=== PATIENT | male | born 1980 | race Caucasian/White ===

== ENCOUNTER 2024-06-20 11:26 | Emergency (ER) | payer OTHER, SELFPAY ==
--- OUTSIDE RECORDS SUMMARY | 2024-06-20 11:30 | XMS REPORT | Continuity of Care Document ---
Author Name Unknown Address [address] [facility] [address] [place] [address] [facility] [address] [facility] [place] [address] Care Team Providers Care Instrument/Control Technician Name Role Phone Louis Beckwith Primary Care Physician [phone] Allergies, Adverse Reactions, Alerts Allergy Name Allergy Type Status Severity Reaction(s) Onset Date Inactive Date Treating Clinician Comments Source penicill in (Not Checked) Propensi ty to adverse reaction to drug Active 09-04 00:00: 00 Burt Mayfield Medications Ordered Medication Name Filled Medication Name Start Date Stop Date Current Medication? Ordering Clinician Indication Dosage Frequency Signature (SIG) Comments Components Source losartan 50 mg tablet 4-16 00:00: 00 Yes 1mg Burt Mayfield losartan 50 mg tablet 4-04 00:00: 00 Yes 1mg Burt Bellamy Chaparro losartan 50 mg tablet 3-03 00:00: 00 Yes 1mg Burt Bellamy Chaparro losartan 50 mg tablet 2023-02 1- 00:00: 00 Yes 1mg Burt Mayfield Protonix 40 mg tablet,leslie yed release 2023-02 1-11 00:00: 00 Yes 1mg Burt Bellamy Chaparro metoprolol tartrate 25 mg tablet 2023-02 1-11 00:00: 00 Yes 1mg Burt F Chaparro losartan 50 mg tablet 2023-02 0-28 00:00: 00 Yes 1mg Burt Bellamy Chaparro Protonix 40 mg tablet,leslie yed release 2023-02 0-28 00:00: 00 Yes 1mg Burt Mayfield metoprolol tartrate 25 mg tablet 2023-02 0-28 00:00: 00 Yes 1mg Burt Bellamy Chaparro losartan 50 mg tablet 2023-02 0-17 00:00: 00 Yes 1mg Burt F Chaparro losartan 50 mg tablet 09-04 00:00: 00 Yes 1mg Burt Mayfield Protonix 40 mg tablet,leslie yed release 09-04 00:00: 00 Yes 1mg Burt Mayfield metoprolol tartrate 25 mg tablet 09-04 00:00: 00 Yes 1mg Burt Mayfield Vital Signs Vital Name Observation Time Observation Value Comments S moi BP Systolic 2024-05-30 17:36:00 147 mm[Hg] Step hen F Chaparro BP Diastolic 2024-05-30 17:36:00 100 mm[Hg] Barrett phen F Chaparro Weight Measured 2024-05-30 17:36:00 203.40 pounds Burt Josesito Mayfield Height Measured 2024-05-30 17:36:00 71.00 inches Burt Mayfield Body Temperature 2024-05-30 17:36:00 98.20 degrees Burt F Chaparro Heart Rate 2024-05-30 17:36:00 73.00 /min Sunni en F Chaparro Respiratory Rate 2024-05-30 17:36:00 18.00 /min Burt Josesito Mayfield BP Systolic 2023-12-26 09:24:00 125 mm[Hg] Step hen F Chaparro BP Diastolic 2023-12-26 09:24:00 88 mm[Hg] Barrett phen F Chaparro Weight Measured 2023-12-26 09:24:00 208.20 pounds Burt Mayfield Height Measured 2023-12-26 09:24:00 71.00 inches Burt Mayfield Body Temperature 2023-12-26 09:24:00 98.20 degrees Burt F Chaparro Heart Rate 2023-12-26 09:24:00 63.00 /min Sunni en F Chaparro Respiratory Rate 2023-12-26 09:24:00 18.00 /min Burt F Chaparro Heart Rate 2023-09-05 08:19:00 98.00 /min Sunni en F Chaparro Respiratory Rate 2023-09-05 08:19:00 19.00 /min Burt F Chaparro BP Systolic 2023-09-05 08:19:00 121 mm[Hg] Step hen F Chaparro BP Diastolic 2023-09-05 08:19:00 83 mm[Hg] Barrett phen F Chaparro Weight Measured 2023-09-05 08:19:00 189.60 pounds Burt Mayfield Height Measured 2023-09-05 08:19:00 71.00 inches Burt Mayfield Body Temperature 2023-09-05 08:19:00 97.50 degrees Burt Mayfield Encounters Start Date/Time End Date/Time Encounter Type Admission Type Attending [facility] Care Department Encounter ID Source 2024-06-20 11:15:30 2024-06-20 11:15:30 Outpatient SFA [id number] [id number] Burt Mayfield 2024-05-30 17:31:54 2024-05-30 17:31:54 Outpatient SFA SFA [id number] Burt Mayfield 2024-05-30 00:00:00 2024-05-30 00:00:00 Outpatient Visit SFA [id number] Burt Mayfield 2024-04-24 15:07:41 2024-04-24 15:07:41 Outpatient SFA SFA [id number] Burt Mayfield 2024-04-24 00:00:00 2024-04-24 00:00:00 Outpatient Visit SFA [id number] Burt Mayfield 2023-12-28 10:33:36 2023-12-28 10:33:36 Outpatient SFA SFA [id number] Burt Mayfield 2023-12-26 11:26:57 2023-12-26 11:26:57 Outpatient SFA SFA [id number] Burt Mayfield 2023-12-26 00:00:00 2023-12-26 00:00:00 Outpatient Visit SFA [id number] Burt Mayfield 2023-09-05 08:18:08 2023-09-05 08:18:08 Outpatient SFA SFA [id number] Burt Mayfield 2023-09-05 00:00:00 2023-09-05 00:00:00 Outpatient Visit SFA [id number] Burt Mayfield Results Test Description Test Time Test Comments Results Result Co mments Source Burt MayfieldLIPID [id number] 00:00:00* Test Item Value Reference Range Interpretation Comme nts CHOLESTEROL (test code = 2210) 224 MG/DL TRIGLYCERIDES (test code = 2232) 270 MG/DL HDL CHOLESTEROL (test code = 2220) 52 MG/DL CALC LDL CHOL (test code = 2237) 130 MG/DL RISK RATIO LDL/HDL (test cod e = 2238) 2.50 RATIO Burt MayfieldCOMPREHENSIVE METABOLIC [id number] 00:00:00* Test Item Value Reference Range Interpretation Comme nts GLUCOSE (test code = 2217) 104 MG/DL BUN (test code = 2208) 23 MG/DL CREATININE (test code = 2214) 0.92 MG/DL eGFR (2020 CKD-EPI) (test code = 39809) 106 ML/MIN/1.73 CALC BUN/CREAT (test code = 2235) 25 RATIO SODIUM (test code = 2231) 136 MEQ/L POTASSIUM (test code = 2228) 4.8 MEQ/L CHLORIDE (test code = 2215) 102 MEQ/L CARBON DIOXIDE (test code = 2206) 25 MEQ/L CALCIUM (test code = 2209) 9.7 MG/DL PROTEIN, TOTAL (test code = 2229) 7.1 G/DL ALBUMIN (test code = 2201) 4.6 G/DL CALC GLOBULIN (test code = 2240) 2.5 G/DL CALC A/G RATIO (test code = 2234) 1.8 RATIO BILIRUBIN, TOTAL (test code = 2207) 0.6 MG/DL ALKALINE PHOSPHATASE (test code = 2204) 86 U/L AST (test code = 2218) 24 U/L ALT (test code = 2219) 37 U/L Burt MayfieldHEMOGLOBIN [id number] 00:00:00* Test Item Value Reference Range Interpretation Comme nts HEMOGLOBIN A1c (test code = 64333) 5.4 % Burt MayfieldLIPID [id number] 00:00:00* Test Item Value Reference Range Interpretation Comme nts CHOLESTEROL (test code = 2210) 224 MG/DL TRIGLYCERIDES (test code = 2232) 270 MG/DL HDL CHOLESTEROL (test code = 2220) 52 MG/DL CALC LDL CHOL (test code = 2237) 130 MG/DL RISK RATIO LDL/HDL (test cod e = 2238) 2.50 RATIO Burt MayfieldCOMPREHENSIVE METABOLIC [id number] 00:00:00* Test Item Value Reference Range Interpretation Comme nts GLUCOSE (test code = 2217) 104 MG/DL BUN (test code = 2208) 23 MG/DL CREATININE (test code = 2214) 0.92 MG/DL eGFR (2020 CKD-EPI) (test code = 15665) 106 ML/MIN/1.73 CALC BUN/CREAT (test code = 2235) 25 RATIO SODIUM (test code = 2231) 136 MEQ/L POTASSIUM (test code = 2228) 4.8 MEQ/L CHLORIDE (test code = 2215) 102 MEQ/L CARBON DIOXIDE (test code = 2206) 25 MEQ/L CALCIUM (test code = 2209) 9.7 MG/DL PROTEIN, TOTAL (test code = 2229) 7.1 G/DL ALBUMIN (test code = 2201) 4.6 G/DL CALC GLOBULIN (test code = 2240) 2.5 G/DL CALC A/G RATIO (test code = 2234) 1.8 RATIO BILIRUBIN, TOTAL (test code = 2207) 0.6 MG/DL ALKALINE PHOSPHATASE (test code = 2204) 86 U/L AST (test code = 2218) 24 U/L ALT (test code = 2219) 37 U/L Burt Josesito Chaparro Notes Date/Time Note Provider Source [facility]2025-03-11 00:00:00 [facility]2024-11-11 00:00:00 [facility]2024-07-22 00:00:00 [facility]
[2024-06-20] MEDS ORDERED: NA CHLORIDE 0.9% 1,000 ML ONE (11:45)
[2024-06-20 12:20] LABS: Absolute Eosinophils 0.2 K/uL (0-0.5); Absolute Lymphocytes (CBC) 1.6 K/uL (0.7-4.9); Absolute Monocytes 0.6 K/uL (0.1-1.3); Absolute Neutrophil 4.3 K/uL (1.8-8.0); Basophils % 0.5 % (0-1.3); Eosinophils % 2.9 % (0-4.4); Hematocrit 43.7 % (39.6-49.0); Hemoglobin 15.6 g/dL (13.6-17.9); Lymphocytes % 24.1 % (15.3-44.8); MCH 32.1 pg (27.0-35.0); MCHC 35.7 g/dL (32.0-36.0); MCV 89.8 fL (80-100); MPV 7.3 fL (7.6-11.3); Monocytes % 9.3 % (3.3-12.3); Neutrophils % 63.2 % (41.7-73.7); Platelets 274 thou/uL (152-406); RBC Red Blood Cell Count 4.87 M/uL (4.33-5.43); Red Cell Distribution Width 12.9 % (12.1-15.2)
[2024-06-20 12:27] LABS: PT Prothrombin Time 13.4 SECONDS (10-13.0); PTT, Activated Partial Thromb 28.4 SECONDS (27.2-37.4); Protime INR 1.18
--- NOTE | 2024-06-20 12:39 | ER ---
Nurse's Notes [facility] Name: Dillan Tamayo Age: 43 yrs Sex: Male : 1980 Arrival Date: 06/20/2024 Time: 11:26 Bed 18 Private MD: Diagnosis: Major depressive disorder, recurrent, moderate;Bipolar disorder, unspecified;Suicidal ideations Presentation: 06/20 11:39 Chief complaint: Patient states: he is on parole, failed his UA and UDS in attempt to kc6 get a new job and now "they want to lock me up again." pt states he has a noose tied to one of the trees at the local [employer] so he can hang himself. pt reports auditory halllucinations. 11:39 Coronavirus screen: At this time, the client does not indicate any symptoms associated kc6 with coronavirus-19. Ebola Screen: No symptoms or risks identified at this time. Initial Sepsis Screen: Does the patient meet any 2 criteria? No. Patient's initial sepsis screen is negative. Does the patient have a suspected source of infection? No. Patient's initial sepsis screen is negative. Risk Assessment: Do you want to hurt yourself or someone else? Patient reports desire/thoughts of hurting themselves or someone else. Provider notified. Onset of symptoms was June 20, 2024. 11:39 Method Of Arrival: Ambulatory [facility] 11:39 Acuity: JHONATHAN 2 kc6 Historical: - Allergies: 11:39 PENICILLINS; kc6 - Home Meds: 11:39 metoprolol tartrate 25 mg Oral tablet 1 tab 2 times per day [Active]; omeprazole 40 mg kc6 Oral capsule,delayed release (e.c.) 1 cap daily for gastroesophageal reflux disease [Active]; Lisinopril 50 mg Oral 1 tab daily for hypertension [Active]; - PMHx: 11:39 Hypertensive disorder; Gastroesophageal reflux disease; Anxiety; Depressive disorder; kc6 Bipolar disorder; PTSD; - PSHx: 11:39 None; kc6 - Immunization history:: Adult Immunizations up to date. - Infectious Disease History:: Denies. - Social history:: Smoking status: Reported history of juuling and/or vaping. Patient uses alcohol, patient/guardian reports recent binge of alcohol consumption. street drugs, cocaine, Methamphetamine (Meth). Screenin:39 [facility] ED Fall Risk Assessment (Adult) History of falling in the last 3 months, kc6 including since admission No falls in past 3 months (0 pts) Confusion or Disorientation No (0 pts) Intoxicated or Sedated Yes (3 pts) Impaired Gait No (0 pts) Mobility Assist Device Used No (0 pt) Altered Elimination No (0 pt) Score/Fall Risk Level 3 or more points = High Risk Oriented to surroundings. Abuse screen: Denies threats or abuse. Denies injuries from another. Nutritional screening: No deficits noted. Tuberculosis screening: No symptoms or risk factors identified. Assessment: 11:39 General: Appears in no apparent distress. comfortable, well groomed, well developed, kc6 Behavior is anxious, restless. Pain: Denies pain. Neuro: Level of Consciousness is awake, alert, obeys commands, Oriented to person, place, time, situation, Appropriate for age. Cardiovascular: Capillary refill < 3 seconds. Respiratory: Airway is patent Trachea midline Respiratory effort is even, unlabored, Respiratory pattern is regular, symmetrical. GI: No signs and/or symptoms were reported involving the gastrointestinal system. : No signs and/or symptoms were reported regarding the genitourinary system. EENT: No signs and/or symptoms were reported regarding the EENT system. Derm: No signs and/or symptoms reported regarding the dermatologic system. Skin is intact, is healthy with good turgor, Skin is pink, warm \\T\\ dry. Musculoskeletal: No signs and/or symptoms reported regarding the musculoskeletal system. Circulation, motion, and sensation intact. Range of motion: intact in all extremities. 12:39 Reassessment: Patient appears in no apparent distress at this time. No changes from kc6 previously documented assessment. Patient and/or family updated on plan of care and expected duration. Pain level reassessed. Patient is alert, oriented x 3, equal unlabored respirations, skin warm/dry/pink. 13:41 Reassessment: Patient appears in no apparent distress at this time. No changes from kc6 previously documented assessment. Patient and/or family updated on plan of care and expected duration. Pain level reassessed. Patient is alert, oriented x 3, equal unlabored respirations, skin warm/dry/pink. 14:41 Reassessment: Patient appears in no apparent distress at this time. No changes from kc6 previously documented assessment. Patient and/or family updated on plan of care and expected duration. Pain level reassessed. Patient is alert, oriented x 3, equal unlabored respirations, skin warm/dry/pink. 14:50 Reassessment: [facility] at bedside evaluating patient. kc6 15:51 Reassessment: nurse to nurse report given to MARIE Page at [facility]. kc6 15:51 Reassessment: Patient appears in no apparent distress at this time. No changes from kc6 previously documented assessment. Patient and/or family updated on plan of care and expected duration. Pain level reassessed. Patient is alert, oriented x 3, equal unlabored respirations, skin warm/dry/pink. 16:51 Reassessment: Patient appears in no apparent distress at this time. No changes from kc6 previously documented assessment. Patient and/or family updated on plan of care and expected duration. Pain level reassessed. Patient is alert, oriented x 3, equal unlabored respirations, skin warm/dry/pink. 17:51 Reassessment: Patient appears in no apparent distress at this time. No changes from kc6 previously documented assessment. Patient and/or family updated on plan of care and expected duration. Pain level reassessed. Patient is alert, oriented x 3, equal unlabored respirations, skin warm/dry/pink. 18:16 Reassessment: Patient appears in no apparent distress at this time. No changes from kc6 previously documented assessment. Patient and/or family updated on plan of care and expected duration. Pain level reassessed. Patient is alert, oriented x 3, equal unlabored respirations, skin warm/dry/pink. Psych: 11:39 [place] Suicide Severity Screening: In the past month, have you wished you were kc6 or wished you could go to sleep and not wake up? Patient responds "yes." Based off the client's responses additional C-SSRS screening is required. "In the past month, have you actually had any thoughts of killing yourself?" Patient responds "yes." Based off the client's response additional [place] suicide severity screening questions to be further documented on paper forms. "In your lifetime, have you ever done anything, started to do anything, or prepared to do anything to end your life?" Patient responds "yes." Patient reports suicidal intent within 3 past months. Subjective: Patient's mood is irritable, Delusions are denied, Hallucinations are auditory, suspected, Having thoughts of suicide. Plan for suicide is "hang myself with a noose". 11:39 Objective: Patient is using poor eye contact, restless, Speech is rapid, Affect is kc6 appropriate. Interventions: Removed personal items and placed in bag. Patient placed in hospital gown. Searched person for dangerous items. Urine collected and sent for urine drug test. Belonging list filled out. Safety Checks: Personal items have been removed. Door is closed to patient's room. No visitors are present at this time. Patient uses Patient uses cocaine, Patient uses methamphetamines Patient uses tobacco. Commitment: Patient will be a voluntary commitment. Vital Signs: 11:39 BP 117 / 84; Pulse 80; Resp 19 S; Temp 97.9(TE); Pulse Ox 100% on R/A; Weight 92.53 kg kc6 (R); Height 6 ft. 1 in. (R); Pain 0/10; 18:15 BP 122 / 82; Pulse 85; Resp 17 S; Temp 98.2(O); Pulse Ox 100% on R/A; Pain 0/10; kc6 11:39 Body Mass Index 26.91 (92.53 kg, 185.42 cm) [facility] 11:39 Pain Scale: Adult kc6 18:15 Pain Scale: Adult kc6 ED Course: 11:29 Patient arrived in ED. al6 11:31 Johnny Perea MD is Attending Physician. [facility] 11:39 Safety Checks: Personal items have been removed. The door is not opened, nor is patient kc6 placed in a hallway bed/chair. There are no family/friend visitors at this time Sitter present at this time. 11:39 Arm band placed on. kc6 11:39 Patient has correct armband on for positive identification. Bed in low position. Side kc6 rails up X2. Valuables inventory done. Locked in safe. See valuables checklist. Sitter at bedside. Door closed. Noise minimized. Visitors limited. Lights dimmed. Moved to private room. Warm blanket given. Pillow given. Verbal reassurance given. Patient is placed in psych hold. 11:39 No provider procedures requiring assistance completed. Patient maintains SpO2 kc6 saturation greater than 95% on room air. 11:42 Qing Smalls RN is Primary Nurse. kc6 12:03 Triage completed. kc6 13:56 contacted [facility] to have a screener evaluate pt. bd 14:07 faxed chart to hamzah montano. bd 18:15 IV discontinued, intact, bleeding controlled, No redness/swelling at site. Pressure kc6 dressing applied. Administered Medications: 12:19 Drug: NS 0.9% IV 1000 ml IV at 1000 ml once; to be given as a bolus over 60 minutes kc6 Route: IV; Rate: 1000 ml; Site: right forearm; 13:42 Follow up: Response: No adverse reaction; IV Status: Completed infusion; IV Intake: kc6 1000ml Medication: 18:15 VIS not applicable for this client. kc6 Intake: 13:42 IV: 1000ml; Total: 1000ml. kc6 Outcome: 12:39 ER care complete, transfer ordered by . ivette 18:15 Transferred by ground EMS [facility]. Transfer form completed. Note: report given kc6 to MARIE Page 18:15 Condition: good 18:15 Instructed on the need for transfer, kc6 18:18 Patient left the ED. kc6 Signatures: Lashawn Rutledge Corey, MD MD cha Campbell, Kaitlyn RN RN kc6 Maira Du Corrections: (The following items were deleted from the chart) 12:06 11:39 Home Meds: Lisinopril Oral; kc6 kc6 12:35 11:39 92.53 kg Reported; Height 6 ft. 1 in. Reported; BMI: 26.9; Pain 0/10, Adult; kc6 kc6
--- NOTE | 2024-06-20 12:39 | EDPHYS ---
Physician Documentation [facility] Name: Dillan Tamayo Age: 43 yrs Sex: Male : 1980 Arrival Date: 06/20/2024 Time: 11:26 Bed 18 Private MD: MARTIN Physician Johnny Perea HPI: 06/20 12:33 This 43 yrs old Male presents to ER via Ambulatory with complaints of Psych ivette Problem, Suicidal Ideation. 12:33 The patient presents to the emergency department with anxiety, depression, suicide ivette ideation, and the patient has a plan, to hang oneself. Onset: The symptoms/episode began/occurred today. Past psychiatric history: Prior diagnosis: addiction history, depression. Associated signs and symptoms: Pertinent positives; suicide ideation. Severity of symptoms: At their worst the symptoms were moderate in the emergency department the symptoms have improved mildly. The patient has experienced similar episodes in the past, a few times. Historical: - Allergies: 11:39 PENICILLINS; kc6 - Home Meds: 11:39 metoprolol tartrate 25 mg Oral tablet 1 tab 2 times per day [Active]; omeprazole 40 mg kc6 Oral capsule,delayed release (e.c.) 1 cap daily for gastroesophageal reflux disease [Active]; Lisinopril 50 mg Oral 1 tab daily for hypertension [Active]; - PMHx: 11:39 Hypertensive disorder; Gastroesophageal reflux disease; Anxiety; Depressive disorder; kc6 Bipolar disorder; PTSD; - PSHx: 11:39 None; kc6 - Immunization history:: Adult Immunizations up to date. - Infectious Disease History:: Denies. - Social history:: Smoking status: Reported history of juuling and/or vaping. Patient uses alcohol, patient/guardian reports recent binge of alcohol consumption. street drugs, cocaine, Methamphetamine (Meth). ROS: 12:34 Constitutional: Negative for fever, chills, and weight loss, Eyes: Negative for injury, ivette pain, redness, and discharge, ENT: Negative for injury, pain, and discharge, Neck: Negative for injury, pain, and swelling, Cardiovascular: Negative for chest pain, palpitations, and edema, Respiratory: Negative for shortness of breath, cough, wheezing, and pleuritic chest pain, Abdomen/GI: Negative for abdominal pain, nausea, vomiting, diarrhea, and constipation, Back: Negative for injury and pain, : Negative for injury, bleeding, discharge, and swelling, MS/Extremity: Negative for injury and deformity, Skin: Negative for injury, rash, and discoloration, Neuro: Negative for headache, weakness, numbness, tingling, and seizure, Allergy/Immunology: Negative for hives, rash, and allergies, Endocrine: Negative for neck swelling, polydipsia, polyuria, polyphagia, and marked weight changes, Hematologic/Lymphatic: Negative for swollen nodes, abnormal bleeding, and unusual bruising, 12:34 Psych: Positive for anxiety, depression, suicidal ideation, Exam: 12:34 Constitutional: This is a well developed, well nourished patient who is awake, alert, ivette and in no acute distress. Head/Face: Normocephalic, atraumatic. Eyes: Pupils equal round and reactive to light, extra-ocular motions intact. Lids and lashes normal. Conjunctiva and sclera are non-icteric and not injected. Cornea within normal limits. Periorbital areas with no swelling, redness, or edema. ENT: Nares patent. No nasal discharge, no septal abnormalities noted. Tympanic membranes are normal and external auditory canals are clear. Oropharynx with no redness, swelling, or masses, exudates, or evidence of obstruction, uvula midline. Mucous membranes moist. Neck: Trachea midline, no thyromegaly or masses palpated, and no cervical lymphadenopathy. Supple, full range of motion without nuchal rigidity, or vertebral point tenderness. No Meningismus. Chest/axilla: Normal chest wall appearance and motion. Nontender with no deformity. No lesions are appreciated. Cardiovascular: Regular rate and rhythm with a normal S1 and S2. No gallops, murmurs, or rubs. Normal PMI, no JVD. No pulse deficits. Respiratory: Lungs have equal breath sounds bilaterally, clear to auscultation and percussion. No rales, rhonchi or wheezes noted. No increased work of breathing, no retractions or nasal flaring. Abdomen/GI: Soft, non-tender, with normal bowel sounds. No distension or tympany. No guarding or rebound. No evidence of tenderness throughout. Back: No spinal tenderness. No costovertebral tenderness. Full range of motion. Male : Normal genitalia with no discharge or lesions. Skin: Warm, dry with normal turgor. Normal color with no rashes, no lesions, and no evidence of cellulitis. MS/ Extremity: Pulses equal, no cyanosis. Neurovascular intact. Full, normal range of motion., bilateral aka Neuro: Awake and alert, GCS 15, oriented to person, place, time, and situation. Cranial nerves II-XII grossly intact. Motor strength 5/5 in all extremities. Sensory grossly intact. Cerebellar exam normal. Normal gait. Psych: Awake, alert, with orientation to person, place and time. Behavior, mood, and affect are within normal limits. 12:34 ECG was reviewed by the Attending Physician. Vital Signs: 11:39 BP 117 / 84; Pulse 80; Resp 19 S; Temp 97.9(TE); Pulse Ox 100% on R/A; Weight 92.53 kg kc6 (R); Height 6 ft. 1 in. (R); Pain 0/10; 18:15 BP 122 / 82; Pulse 85; Resp 17 S; Temp 98.2(O); Pulse Ox 100% on R/A; Pain 0/10; kc6 11:39 Body Mass Index 26.91 (92.53 kg, 185.42 cm) kc6 11:39 Pain Scale: Adult kc6 18:15 Pain Scale: Adult kc6 MDM: 11:31 Medical Screening Exam initiated ivette 12:36 Differential diagnosis: drug withdrawal. acute psychotic break, depression, psychosis ivette secondary to non-compliance. Differential Diagnosis altered mental status, sepsis. Data reviewed: vital signs, nurses notes, lab test result(s), EKG. Consideration of Admission/Observation Escalation of care including admission/observation considered. I considered the following discharge prescriptions or medication management in the emergency department Medications were administered in the Emergency Department. See MAR. Independent interpretation of the following test(s) in the Emergency Department EKG: See my EKG interpretation above. Test considered but Not performed: CT: no ct brain. Historians other than the Patient: pt well informed. Care significantly affected by the following chronic conditions: Hypertension, bipolar, gerd, anxiety, depression. 06/20 11:31 Order name: Acetaminophen [facility] 06/20 11:31 Order name: Basic Metabolic Panel [facility] 06/20 11:31 Order name: CBC with Diff 06/20 11:31 Order name: ETOH Level 06/20 11:31 Order name: Hepatic Function [facility] 06/20 11:31 Order name: PT-INR [facility] 06/20 11:31 Order name: Ptt, Activated [facility] 06/20 11:31 Order name: Salicylate [facility] 06/20 11:31 Order name: Urine Drug Screen [facility] 06/20 14:49 Order name: CBC Smear Scan [facility] 06/20 11:31 Order name: EKG; Complete Time: 11:32 [facility] 06/20 11:31 Order name: EKG - Nurse/Tech; Complete Time: 12:19 [facility] 06/20 11:31 Order name: IV Saline Lock; Complete Time: 12:11 [facility] 06/20 11:31 Order name: Labs collected and sent; Complete Time: 12:11 [facility] 06/20 11:31 Order name: Suicide Screening ([place]); Complete Time: 12:09 [facility] EC:34 Rate is 79 beats/min. Rhythm is regular. QRS [place] is Normal. [place] interval is normal. QRS ivette interval is normal. QT interval is normal. No Q waves. T waves are Normal. No ST changes noted. Clinical impression: NSR w/ Non-specific ST/T Changes and No evidence of ischemia. Interpreted by me. Reviewed by me. Administered Medications: 12:19 Drug: NS 0.9% IV 1000 ml IV at 1000 ml once; to be given as a bolus over 60 minutes kc6 Route: IV; Rate: 1000 ml; Site: right forearm; 13:42 Follow up: Response: No adverse reaction; IV Status: Completed infusion; IV Intake: kc6 1000ml Disposition Summary: 06/20/24 12:39 Transfer Ordered Notes: Transfer Location: Psych Facility ivette Reason: Higher level of care ivette Condition: Stable ivette Problem: new ivette Symptoms: have improved ivette Accepting Physician: to psych(06/20/24 18:18) kc6 Diagnosis - Major depressive disorder, recurrent, moderate ivette - Bipolar disorder, unspecified ivette - Suicidal ideations ivette Forms: - Medication Reconciliation Form ivette - SBAR form ivette Signatures: Dispatcher [employer] Johnny Sigala MD MD cha Campbell, Kaitlyn RN RN kc6 Corrections: (The following items were deleted from the chart) 12:06 11:39 Home Meds: Lisinopril Oral; kc6 kc6 18:18 12:39 to psych ivette kc6
[2024-06-20 12:55] LABS: ALT/SGPT 31 U/L (16-61); AST/SGOT 18 U/L (15-37); Albumin 4.1 g/dL (3.4-5.0); Albumin/Globulin Ratio 1.2 (1.1-1.8); Alkaline Phosphatase 77 U/L (45-117); Anion Gap 9.6 mEq/L (5.0-15.0); BUN Blood Urea Nitrogen 11 mg/dL (7-18); Bicarbonate 24 mEq/L (21-32); Bilirubin Direct 0.4 mg/dL (0-0.2); Bilirubin Indirect, Calculated 1.4 mg/dL (0.2-0.8); Bilirubin Total 1.8 mg/dL (0.2-1.0); Globulin 3.3 g/dL (2.3-3.5); Glomerular Filtration Rate 92 ml/min (=/>90); Glucose Level 84 mg/dL (74-106); Potassium 3.6 mEq/L (3.5-5.1); Protein, Total 7.4 g/dL (6.4-8.2); Sodium Level 135 mEq/L (136-145)
[2024-06-20 13:03] LABS: Barbiturates NEGATIVE (NEGATIVE); Benzodiazepines NEGATIVE (NEGATIVE); Cocaine POSITIVE (NEGATIVE); METHAMPHETAM POSITIVE (NEGATIVE); Methadone NEGATIVE (NEGATIVE); Opiates NEGATIVE (NEGATIVE); Phencyclidine NEGATIVE (NEGATIVE); THC Cannibis NEGATIVE (NEGATIVE)
[2024-06-20 14:48] LABS: Blood Morphology Comment NOT SEEN (NOT SEEN); Platelet Estimate ADEQ; White Blood Cell Scan OK (OK)
[2024-06-20 19:59] VITALS: O2SAT 100
[2024-06-20 20:01] VITALS: BP 122/82; TEMP 98.2
--- NOTE | 2024-06-21 11:43 | EKG ---
Test Date: 2024-06-20 Test Time: 12:17:02 Pipelines Manager: ANATOLY MEASUREMENT RESULTS: Intervals: Rate: 79 AL: 150 QRSD: 90 QT: 388 QTc: 444 Hailey: P: 76 AL: 150 QRS: 77 T: 74 INTERPRETIVE STATEMENTS: Normal sinus rhythm Normal ECG Compared to ECG 04/15/2001 21:07:00 Early repolarization no longer present Electronically Signed On 06-21-24 11:39:52 CDT by Randy Garcia
== END 2024-06-20 18:18 ==
LOC: ER 11:26
DX: R45.851 Suicidal ideations (principal); F33.1 Major depressive disorder, recurrent, moderate
CPT/HCPCS: 36415; 80048; 80076; 80143; 80179; 80307; 82077; 85025; 85610; 85730; 93005; J7030

== ENCOUNTER 2024-11-01 12:03 | Emergency (ER) | payer SELFPAY ==
--- OUTSIDE RECORDS SUMMARY | 2024-11-01 12:05 | XMS REPORT | Continuity of Care Document ---
Author Name Unknown Address [address] [place] [address] [facility] [place] Address [address] [place] [address] Care Team Providers Care Top Dyeing Machine Tender Name Role Phone Louis Beckwith Primary Care Physician Allergies, Adverse Reactions, Alerts Allergy Name Allergy [...] tablet 4-16 00:00: 00 Yes 1mg Burt Bellamy Chaparro losartan 50 mg tablet 4-04 00:00: 00 Yes 1mg Burt Bellamy Chaparro losartan 50 mg tablet 3-03 00:00: 00 Yes 1mg Burt Bellamy Chaparro losartan 50 mg tablet 2023-02 1- 00:00: 00 Yes 1mg Burt F Chaparro Protonix 40 mg tablet,leslie yed release 2023-02- 00:00: 00 Yes 1mg Burt F Chaparro metoprolol tartrate 25 mg tablet 2023-02 1-11 00:00: 00 Yes 1mg Burt F Chaparro losartan 50 mg tablet 2023-02 0- 00:00: 00 Yes 1mg Burt F Chaparro Protonix 40 mg tablet,leslie yed release 2023-02 0-28 00:00: 00 Yes 1mg Burt F Chaparro metoprolol tartrate 25 mg tablet 2023-02 0-28 00:00: 00 Yes 1mg Burttrupti Mayfield losartan 50 mg tablet 2023-02 0- 00:00: 00 Yes 1mg Burt Mayfield losartan 50 mg tablet 09-04 00:00: 00 Yes 1mg Burt Mayfield Protonix 40 mg tablet,leslie yed release 09-04 00:00: 00 Yes 1mg Burt Mayfield metoprolol tartrate 25 mg tablet 09-04 00:00: 00 Yes 1mg Burt Mayfield Vital Signs Vital Name Observation Time Observation Value Comments S moi BP Systolic 2024-09-06 13:53:00 138 mm[Hg] Step hen Josesito Mayfield BP Diastolic 2024-09-06 13:53:00 96 mm[Hg] Barrett phen F Chaparro Weight Measured 2024-09-06 13:53:00 211.20 pounds Burt Mayfield Height Measured 2024-09-06 13:53:00 71.00 inches Burt Josesito Mayfield Body Temperature 2024-09-06 13:53:00 99.00 degrees Burt Josesito Mayfield Heart Rate 2024-09-06 13:53:00 105.00 /min Step hen F Chaparro Respiratory Rate 2024-09-06 13:53:00 18.00 /min Burt F Chaparro BP Systolic 2024-05-30 17:36:00 147 mm[Hg] Step hen F Chaparro BP Diastolic 2024-05-30 17:36:00 100 mm[Hg] Barrett phen F Chaparro Weight Measured 2024-05-30 17:36:00 203.40 pounds Burt Mayfield Height Measured 2024-05-30 17:36:00 71.00 inches Burt Mayfield Body Temperature 2024-05-30 17:36:00 98.20 degrees Burt Mayfield Heart Rate 2024-05-30 17:36:00 73.00 /min Sunni en F Chaparro Respiratory Rate 2024-05-30 17:36:00 18.00 /min Burt F Chaparro BP Systolic 2023-12-26 09:24:00 125 mm[Hg] Step hen F Chaparro BP Diastolic 2023-12-26 09:24:00 88 mm[Hg] Barrett phen F Chaparro Weight Measured 2023-12-26 09:24:00 208.20 pounds Burt Mayfield Height Measured 2023-12-26 09:24:00 71.00 inches Burt Mayfield Body Temperature 2023-12-26 09:24:00 98.20 degrees Burt Mayfield Heart Rate 2023-12-26 09:24:00 63.00 /min Sunni en Josesito Mayfield Respiratory Rate 2023-12-26 09:24:00 18.00 /min Burt Mayfield Heart Rate 2023-09-05 08:19:00 98.00 /min Sunni en Josesito Mayfield Respiratory Rate 2023-09-05 08:19:00 19.00 /min Burt Mayfield BP Systolic 2023-09-05 08:19:00 121 mm[Hg] Step hen Josesito Mayfield BP Diastolic 2023-09-05 08:19:00 83 mm[Hg] Barrett Mayfield Weight Measured 2023-09-05 08:19:00 189.60 pounds Burt Mayfield Height Measured 2023-09-05 08:19:00 71.00 inches Burt Mayfield Body Temperature 2023-09-05 08:19:00 97.50 degrees Burt Mayfield Encounters Start Date/Time End Date/Time Encounter Type Admission Type [facility] Care Department Encounter ID Source 2024-09-20 12:28:27 2024-09-20 12:28:27 Outpatient SFA SFA [id number] Burt Mayfield 2024-09-06 13:41:02 2024-09-06 13:41:02 Outpatient SFA SFA [id number] Burt Mayfield 2024-09-06 00:00:00 2024-09-06 00:00:00 Outpatient Visit SFA [id number] Burt Mayfield 2024-06-20 11:15:30 2024-06-20 11:15:30 Outpatient SFA SFA [id number] Burt Mayfield 2024-05-30 17:31:54 2024-05-30 17:31:54 Outpatient SFA SFA [id number] Burt Mayfield 2024-05-30 00:00:00 2024-05-30 00:00:00 Outpatient Visit SFA [id number] Burt Mayfield 2024-04-24 15:07:41 2024-04-24 15:07:41 Outpatient SFA SFA [id number] Burt Mayfield 2024-04-24 00:00:00 2024-04-24 00:00:00 Outpatient Visit SFA [id number] Burt Mayfield 2023-12-28 10:33:36 2023-12-28 10:33:36 Outpatient SFA SFA [id number] Burt Mayfield 2023-12-26 11:26:57 2023-12-26 11:26:57 Outpatient SFA SFA [id number] Burt Mayfield 2023-12-26 00:00:00 2023-12-26 00:00:00 Outpatient Visit SFA [id number] Burt Mayfield 2023-09-05 08:18:08 2023-09-05 08:18:08 Outpatient SFA SFA [id number] Burt Mayfield 2023-09-05 00:00:00 2023-09-05 00:00:00 Outpatient Visit SFA [id number] Burt Mayfield Results Test Description Test Time Test Comments Results Result Co mments Source Burt MayfieldLIPID [id number] 00:00:00* Test Item Value Reference Range Interpretation Comme nts CHOLESTEROL (test code = 2210) 224 MG/DL TRIGLYCERIDES (test code = 2232) 270 MG/DL HDL CHOLESTEROL (test code = 2220) 52 MG/DL CALC LDL CHOL (test code = 2237) 130 MG/DL RISK RATIO LDL/HDL (test cod e = 2238) 2.50 RATIO Burt MayfieldCOMPREHENSIVE METABOLIC [id number] 00:00:00* Test Item Value Reference Range Interpretation Comme nts GLUCOSE (test code = 2217) 104 MG/DL BUN (test code = 2208) 23 MG/DL CREATININE (test code = 2214) 0.92 MG/DL eGFR (2020 CKD-EPI) (test code = 39869) 106 ML/MIN/1.73 CALC BUN/CREAT (test code = [...] code = 2219) 37 U/L Burt MayfieldHEMOGLOBIN [id number] 00:00:00* Test Item Value Reference Range Interpretation Comme nts HEMOGLOBIN A1c (test code = 60833) 5.4 % Burt MayfieldLIPID [id number] 00:00:00* Test Item Value Reference Range Interpretation Comme nts CHOLESTEROL (test code = 2210) 224 MG/DL TRIGLYCERIDES (test code = 2232) 270 MG/DL HDL CHOLESTEROL (test code = 2220) 52 MG/DL CALC LDL CHOL (test code = 2237) 130 MG/DL RISK RATIO LDL/HDL (test cod e = 2238) 2.50 RATIO Burt MayfieldCOMPREHENSIVE METABOLIC [id number] 00:00:00* Test Item Value Reference Range Interpretation Comme nts GLUCOSE (test code = 2217) 104 MG/DL BUN (test code = 2208) 23 MG/DL CREATININE (test code = 2214) 0.92 MG/DL eGFR (2020 CKD-EPI) (test code = 57009) 106 ML/MIN/1.73 CALC BUN/CREAT (test code = [...] code = 2219) 37 U/L Burt MayfieldHEMOGLOBIN [id number] 00:00:00* Test Item Value Reference Range Interpretation Comme srinivas HEMOGLOBIN A1c (test code = 58278) 5.4 % Burt MayfieldLIPID [id number] 00:00:00* Test Item Value Reference Range Interpretation Comme nts CHOLESTEROL (test code = 2210) 224 MG/DL TRIGLYCERIDES (test code = 2232) 270 MG/DL HDL CHOLESTEROL (test code = 2220) 52 MG/DL CALC LDL CHOL (test code = 2237) 130 MG/DL RISK RATIO LDL/HDL (test cod e = 2238) 2.50 RATIO Burt MayfieldCOMPREHENSIVE METABOLIC [id number] 00:00:00* Test Item Value Reference Range Interpretation Comme nts GLUCOSE (test code = 2217) 104 MG/DL BUN (test code = 2208) 23 MG/DL CREATININE (test code = 2214) 0.92 MG/DL eGFR (2020 CKD-EPI) (test code = 35156) 106 ML/MIN/1.73 CALC BUN/CREAT (test code = [...] (test code = 2219) 37 U/L Burt Mayfield Notes Date/Time Note Provider Source Burt Tyrone [facility]2025-04-16 00:00:00 Burt Nat [facility]2025-03-11 00:00:00 Burt Nat [facility]2024-11-11 00:00:00 Burt FNat [facility]2024-07-22 00:00:00 [facility]
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
[2024-11-01 13:12] VITALS: BP 138/94; TEMP 98; O2SAT 100
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
== END 2024-11-01 12:35 | disposition home or self-care (01) ==
LOC: ER 12:03
DX: S00.81XA Abrasion of other part of head, initial encounter (principal); Y08.02XA Assault by strike by baseball bat, initial encounter
CPT/HCPCS: 99282

== ENCOUNTER 2024-11-03 13:35 | Emergency (ER) | payer SELFPAY ==
[2024-11-03] MEDS ORDERED: NA CHLORIDE 0.9% 1,000 ML ONE (14:14)
--- OUTSIDE RECORDS SUMMARY | 2024-11-03 14:18 | XMS REPORT | Continuity of Care Document ---
Author Name Unknown Address [address] [facility] [address] [place] [address] [facility] [place] Address [address] [facility] [address] [place] [address] Care Team Providers Care Casual Shoe Inspector Name Role Phone Louis Beckwith Primary Care [...] Respiratory Rate 2023-12-26 09:24:00 18.00 /min Burt Mayfeild Heart Rate 2023-09-05 08:19:00 98.00 /min Sunni [...] Date/Time End Date/Time Encounter Type Admission Type [facility] Care Department Encounter ID Source 2024-09-20 12:28:27 2024-09-20 12:28:27 Outpatient SFA SFA [id number] Burt Mayfield 2024-09-06 13:41:02 2024-09-06 13:41:02 Outpatient SFA SFA [id number] Burt Mayfield 2024-09-06 00:00:00 2024-09-06 00:00:00 Outpatient Visit SFA [id number] Burt Mayfield 2024-06-20 11:15:30 2024-06-20 11:15:30 Outpatient SFA SFA [id number] Burt Mayfield 2024-05-30 17:31:54 2024-05-30 17:31:54 Outpatient SFA SFA [id number] Burt Mayfield 2024-05-30 00:00:00 2024-05-30 00:00:00 Outpatient Visit SFA [id number] Burt Mayfield 2024-04-24 15:07:41 2024-04-24 15:07:41 Outpatient SFA SFA [id number] Burt Mayfield 2024-04-24 00:00:00 2024-04-24 00:00:00 Outpatient Visit SFA [id number] Burt Mayfield 2023-12-28 10:33:36 2023-12-28 10:33:36 Outpatient SFA SFA [id number] Burt Mayfield 2023-12-26 11:26:57 2023-12-26 11:26:57 Outpatient SFA SFA [id number] Burt Mayfield 2023-12-26 00:00:00 2023-12-26 00:00:00 Outpatient Visit SFA [id number] Burt Mayfield 2023-09-05 08:18:08 2023-09-05 08:18:08 Outpatient SFA SFA [id number] Burt Mayfield 2023-09-05 00:00:00 2023-09-05 00:00:00 Outpatient Visit SFA [id number] Burt Mayfield Results Test Description Test Time Test Comments Results Result Co mments Source Burt MayfieldLIPID [id number] 00:00:00* Test Item Value Reference Range Interpretation Comme nts CHOLESTEROL (test code = 2210) 224 MG/DL TRIGLYCERIDES (test code = 2232) 270 MG/DL HDL CHOLESTEROL (test code = 2220) 52 MG/DL CALC LDL CHOL (test code = 2237) 130 MG/DL RISK RATIO LDL/HDL (test cod e = 2238) 2.50 RATIO Burt MayfieldCOMPREHENSIVE METABOLIC [id number] 00:00:00* Test Item Value Reference Range Interpretation Comme nts GLUCOSE (test code = 2217) 104 MG/DL BUN (test code = 2208) 23 MG/DL CREATININE (test code = 2214) 0.92 MG/DL eGFR (2020 CKD-EPI) (test code = 30947) 106 ML/MIN/1.73 CALC BUN/CREAT (test code = [...] code = 2219) 37 U/L Burt MayfieldHEMOGLOBIN [id number] 00:00:00* Test Item Value Reference Range Interpretation Comme nts HEMOGLOBIN A1c (test code = 73975) 5.4 % Burt MayfieldLIPID [id number] 00:00:00* Test Item Value Reference Range Interpretation Comme nts CHOLESTEROL (test code = 2210) 224 MG/DL TRIGLYCERIDES (test code = 2232) 270 MG/DL HDL CHOLESTEROL (test code = 2220) 52 MG/DL CALC LDL CHOL (test code = 2237) 130 MG/DL RISK RATIO LDL/HDL (test cod e = 2238) 2.50 RATIO Burt MayfieldCOMPREHENSIVE METABOLIC [id number] 00:00:00* Test Item Value Reference Range Interpretation Comme nts GLUCOSE (test code = 2217) 104 MG/DL BUN (test code = 2208) 23 MG/DL CREATININE (test code = 2214) 0.92 MG/DL eGFR (2020 CKD-EPI) (test code = 16508) 106 ML/MIN/1.73 CALC BUN/CREAT (test code = [...] code = 2219) 37 U/L Burt MayfieldHEMOGLOBIN [id number] 00:00:00* Test Item Value Reference Range Interpretation Comme srinivas HEMOGLOBIN A1c (test code = 81585) 5.4 % Burt MayfieldLIPID [id number] 00:00:00* Test Item Value Reference Range Interpretation Comme nts CHOLESTEROL (test code = 2210) 224 MG/DL TRIGLYCERIDES (test code = 2232) 270 MG/DL HDL CHOLESTEROL (test code = 2220) 52 MG/DL CALC LDL CHOL (test code = 2237) 130 MG/DL RISK RATIO LDL/HDL (test cod e = 2238) 2.50 RATIO Burt MayfieldCOMPREHENSIVE METABOLIC [id number] 00:00:00* Test Item Value Reference Range Interpretation Comme nts GLUCOSE (test code = 2217) 104 MG/DL BUN (test code = 2208) 23 MG/DL CREATININE (test code = 2214) 0.92 MG/DL eGFR (2020 CKD-EPI) (test code = 29057) 106 ML/MIN/1.73 CALC BUN/CREAT (test code = [...] Notes Date/Time Note Provider Source Burt Tyrone [facility]2025-04-16 00:00:00 Burt Nat [facility]2025-03-11 00:00:00 Burt Nat [facility]2024-11-11 00:00:00 Burt FNat [facility]2024-07-22 00:00:00 [facility]
[2024-11-03] MEDS ORDERED: PANTOPRAZOLE 40MG TABLET PO ONE (14:36)
[2024-11-03 14:51] LABS: Absolute Lymphocytes (CBC) 1.6 K/uL (0.7-4.9); Hematocrit 47.5 % (39.6-49.0); Hemoglobin 16.6 g/dL (13.6-17.9); MCH 31.5 pg (27.0-35.0); MCHC 35.0 g/dL (32.0-36.0); MCV 90.0 fL (80-100); MPV 7.5 fL (7.6-11.3); Nucleated RBC Absolute Count 0.0 (0-0); Nucleated Red Blood Cells % 0.2 % (0-0); RBC Red Blood Cell Count 5.28 M/uL (4.33-5.43); White Blood Count 7.90 thou/uL (4.3-10.9)
[2024-11-03 14:55] LABS: METHAMPHETAM POSITIVE (NEGATIVE); THC Cannibis NEGATIVE (NEGATIVE)
[2024-11-03 15:09] LABS: ALT/SGPT 49 U/L (16-61); AST/SGOT 61 U/L (15-37); Albumin 4.0 g/dL (3.4-5.0); Albumin/Globulin Ratio 1.0 (1.1-1.8); Alkaline Phosphatase 93 U/L (45-117); Anion Gap 10.5 mEq/L (5.0-15.0); BUN Blood Urea Nitrogen 6 mg/dL (7-18); Bilirubin Indirect, Calculated 1.3 mg/dL (0.2-0.8); Globulin 4.2 g/dL (2.3-3.5); Glucose Level 96 mg/dL (74-106); Potassium 3.5 mEq/L (3.5-5.1)
--- NOTE | 2024-11-03 15:38 | EDPHYS ---
Physician Documentation [facility] Name: Dillan Tamayo Age: 43 yrs Sex: Male : 1980 Arrival Date: 11/03/2024 Time: 13:35 Bed 19 Private MD: ED Physician Henrry Patel HPI: 11/03 15:11 This 43 yrs old Male presents to ER via Law Enforcement with complaints of pysch sb4 problems. 15:11 Patient was at [employer] a bank when he got very frustrated regarding baking issues, was sb4 getting angry, and made statements that he states that "he should not have "PD was contacted who placed him under an JEREL for making "statements "but does not have any specifics to the statements. Patient adamantly denies that he is suicidal, he states that he was just upset. 15:54 . sb4 Historical: - Allergies: 14:00 PENICILLINS; jl7 - Home Meds: 14:00 losartan 50 mg oral tablet daily [Active]; metoprolol tartrate 25 mg Oral tablet 2 jl7 times per day [Active]; omeprazole 40 mg Oral capsule,delayed release (e.c.) daily [Active]; - PMHx: 14:00 Anxiety; Bipolar disorder; depressive disorder; Gastroesophageal reflux disease; jl7 Hypertensive disorder; PTSD; ODD (Unknown); OCD (Unknown); Multiple personality disorder (Unknown); - PSHx: 14:00 None; jl7 - Immunization history:: Adult Immunizations unknown. - Infectious Disease History:: Denies. - Social history:: Smoking status: Reported history of juuling and/or vaping. Patient uses street drugs, Methamphetamine (Meth). ROS: 15:11 Constitutional: Negative for fever, chills, and weight loss, sb4 15:11 All other systems are negative, Exam: 15:11 Head/Face: Normocephalic, atraumatic. Eyes: Extra-ocular motions intact. Periorbital sb4 areas with no swelling, redness, or edema. ENT: Mucous membranes moist. Respiratory: No increased work of breathing, no retractions or nasal flaring. Skin: Warm, dry with normal turgor. Normal color with no rashes, no lesions, and no evidence of cellulitis. 15:11 Constitutional: The patient appears in no acute distress, alert, awake, 15:11 Psych: Behavior/mood is cooperative, Patient has no thoughts/intents to harm self or sb4 others. Vital Signs: 13:56 BP 140 / 100; Pulse 122; Resp 19; Temp 97.9; Pulse Ox 100% ; Weight 92.99 kg; Height 6 jl7 ft. 0 in. ; Pain 0/10; 15:30 BP 131 / 88; Pulse 100; Resp 18; Pulse Ox 100% ; Pain 0/10; rg5 13:56 Body Mass Index 27.80 (92.99 kg, 182.88 cm) jl7 13:56 Pain Scale: Adult jl7 15:30 Pain Scale: Adult rg5 MDM: 13:47 Medical Screening Exam initiated sb4 15:11 Data reviewed: vital signs, nurses notes, lab test result(s). sb4 15:56 ED course: Patient is not suicidal or homicidal, he is not a threat to himself or sb4 others. His drug screen was positive for methamphetamines. Will discharge home at this time. 11/03 13:47 Order name: Acetaminophen; Complete Time: 15:10 [facility] 11/03 13:47 Order name: Basic Metabolic Panel; Complete Time: 15:10 [facility] 11/03 13:47 Order name: CBC with Diff; Complete Time: 14:55 [facility] 11/03 13:47 Order name: ETOH Level; Complete Time: 15:10 [facility] 11/03 13:47 Order name: Hepatic Function; Complete Time: 15:10 [facility] 11/03 13:47 Order name: Salicylate; Complete Time: 15:09 [facility] 11/03 13:47 Order name: Urine Drug Screen; Complete Time: 14:56 [facility] 11/03 13:47 Order name: EKG - Nurse/Tech; Complete Time: 14:24 [facility] 11/03 13:47 Order name: IV Saline Lock; Complete Time: 14:26 [facility] 11/03 13:47 Order name: Labs collected and sent; Complete Time: 14:26 [facility] 11/03 13:47 Order name: Suicide Precautions; Complete Time: 13:54 [facility] 11/03 13:47 Order name: Suicide Screening ([place]); Complete Time: 14:35 [facility] 11/03 14:46 Order name: Misc. Order: blue top recollect; Complete Time: 15:13 sp Administered Medications: 14:30 Drug: NS 0.9% IV 1000 ml IV at 1 bolus Per protocol; to be given as a bolus over 60 rg5 minutes Route: IV; Rate: 1 bolus; Site: right hand; 15:30 Follow up: IV Status: Completed infusion; IV Intake: 1000ml rg5 14:43 Drug: Pantoprazole PO 40 mg PO once Route: PO; rg5 15:39 Follow up: Response: No adverse reaction rg5 Disposition: 16:09 Co-signature as Attending Physician, Henrry Patel MD I reviewed the patient's care rn provided by the Advanced Practice Provider and agree with the diagnosis and treatment plan. Disposition Summary: 11/03/24 15:38 Discharge Ordered Notes: Location: Home sb4 Problem: new sb4 Symptoms: have improved sb4 Condition: Stable sb4 Diagnosis - Bipolar disorder, unspecified sb4 Followup: sb4 - With: Emergency Department - When: As needed - Reason: Trouble breathing, Worsening of condition Discharge Instructions: - Discharge Summary Sheet sb4 - Managing Bipolar Disorder sb4 Forms: - Patient Portal Instructions sb4 - Leadership Thank You Letter sb4 Signatures: Dispatcher [employer] EDMS Odalys Tellez Roman, MD MD rn Leal, Jahala, RN RN jana7 Velvet Sheth PA-C PAIgnacio sb4 Brian Gramajo RN RN rg5 Corrections: (The following items were deleted from the chart) 13:48 13:48 ACETAMINOPHEN+C.LAB.BRZ ordered. EDMS EDMS 13:48 13:48 BASIC METABOLIC PANEL+C.LAB.BRZ ordered. EDMS EDMS 13:48 13:48 CBC+H.LAB.BRZ ordered. EDMS EDMS 13:48 13:48 ETHANOL+C.LAB.BRZ ordered. EDMS EDMS 13:48 13:48 HEPATIC FUNCTION+C.LAB.BRZ ordered. EDMS EDMS 13:48 13:48 SALICYLATE+C.LAB.BRZ ordered. EDMS EDMS 13:48 13:48 URINE DRUG SCREEN+UC.LAB.BRZ ordered. EDMS EDMS 15:27 13:48 PROTIME (+INR)+COAG.LAB.BRZ ordered. EDMS EDMS 15:27 13:48 PTT, ACTIVATED+COAG.LAB.BRZ ordered. EDMS EDMS 15:34 15:18 Misc. Order ordered. jl7 rg5 15:56 15:11 This 43 yrs old Male presents to ER via Law Enforcement with complaints of sb4 Suicidal Ideation. sb4
--- NOTE | 2024-11-03 15:38 | ER ---
Nurse's Notes [facility] Name: Dillan Tamayo Age: 43 yrs Sex: Male : 1980 Arrival Date: 11/03/2024 Time: 13:35 Bed 19 Private MD: Diagnosis: Bipolar disorder, unspecified Presentation: 11/03 13:56 Chief complaint: PD Officer Atiya present to ED with JEREL for pt, reports toned out jl7 to [facility] for pt making suicidal comments to the staff there. Pt denies SI and HI, reports he was talking to the staff and was just being too honest in his conversation but is not suicidal. Coronavirus screen: At this time, the client does not indicate any symptoms associated with coronavirus-19. Ebola Screen: No symptoms or risks identified at this time. Initial Sepsis Screen: Does the patient meet any 2 criteria? No. Patient's initial sepsis screen is negative. Does the patient have a suspected source of infection? No. Patient's initial sepsis screen is negative. Risk Assessment: Do you want to hurt yourself or someone else? Patient reports no desire to harm self or others. Other: [employer] brought in for SI with JEREL. Onset of symptoms is unknown. Care prior to arrival: None. 13:56 Method Of Arrival: Law Enforcement: Yobany DESAI jl7 13:56 Acuity: JHONATHAN 2 jl7 Triage Assessment: 14:00 General: Appears in no apparent distress. uncomfortable, Behavior is cooperative, jl7 anxious. Pain: Denies pain. Historical: - Allergies: 14:00 PENICILLINS; jl7 - Home Meds: 14:00 losartan 50 mg oral tablet daily [Active]; metoprolol tartrate 25 mg Oral tablet 2 jl7 times per day [Active]; omeprazole 40 mg Oral capsule,delayed release (e.c.) daily [Active]; - PMHx: 14:00 Anxiety; Bipolar disorder; depressive disorder; Gastroesophageal reflux disease; jl7 Hypertensive disorder; PTSD; ODD (Unknown); OCD (Unknown); Multiple personality disorder (Unknown); - PSHx: 14:00 None; jl7 - Immunization history:: Adult Immunizations unknown. - Infectious Disease History:: Denies. - Social history:: Smoking status: Reported history of juuling and/or vaping. Patient uses street drugs, Methamphetamine (Meth). Screenin:35 [facility] ED Fall Risk Assessment (Adult) History of falling in the last 3 months, rg5 including since admission No falls in past 3 months (0 pts) Confusion or Disorientation No (0 pts) Intoxicated or Sedated No (0 pts) Impaired Gait No (0 pts) Mobility Assist Device Used No (0 pt) Altered Elimination No (0 pt) Score/Fall Risk Level 0 - 2 = Low Risk Oriented to surroundings, Maintained a safe environment. 13:35 Abuse screen: Denies threats or abuse. Denies injuries from another. Nutritional rg5 screening: No deficits noted. Tuberculosis screening: No symptoms or risk factors identified. Assessment: 14:33 Reassessment: No changes from previously documented assessment. Patient and/or family rg5 updated on plan of care and expected duration. Pain level reassessed. Patient is alert, oriented x 3, equal unlabored respirations, skin warm/dry/pink. 15:36 Reassessment: No changes from previously documented assessment. Patient and/or family rg5 updated on plan of care and expected duration. Pain level reassessed. Patient is alert, oriented x 3, equal unlabored respirations, skin warm/dry/pink. General: Appears in no apparent distress. comfortable, Behavior is calm, cooperative, appropriate for age, quiet. Psych: 13:35 [place] Suicide Severity Screening: In the past month, have you wished you were rg5 or wished you could go to sleep and not wake up? Patient responds "No." "In the past month, have you actually had any thoughts of killing yourself?" Patient responds "no." "In your lifetime, have you ever done anything, started to do anything, or prepared to do anything to end your life?" Patient responds "no.". Subjective: Having thoughts of suicide. Denies suicidal plan. Objective: Patient is cooperative, Speech is normal. Interventions: Removed personal items and placed in bag. Patient placed in hospital gown. Searched person for dangerous items. Urine collected and sent for urine drug test. Belonging list filled out. 13:35 Safety Checks: Personal items have been removed. Door is open. No visitors are present rg5 at this time. Pt denies substance abuse. Vital Signs: 13:56 BP 140 / 100; Pulse 122; Resp 19; Temp 97.9; Pulse Ox 100% ; Weight 92.99 kg; Height 6 jl7 ft. 0 in. ; Pain 0/10; 15:30 BP 131 / 88; Pulse 100; Resp 18; Pulse Ox 100% ; Pain 0/10; rg5 13:56 Body Mass Index 27.80 (92.99 kg, 182.88 cm) jl7 13:56 Pain Scale: Adult jl7 15:30 Pain Scale: Adult rg5 ED Course: 13:35 No provider procedures requiring assistance completed. rg5 13:44 Patient arrived in ED. jl7 13:47 Velvet Sheth PA-C is PHCP. sb4 13:47 Henrry Patel MD is Attending Physician. sb4 14:00 Triage completed. jl7 14:00 Arm band placed on right wrist. jl7 14:16 Brian Gramajo, MARIE is Primary Nurse. rg5 14:25 EKG done, by laboratory technology teacher. reviewed by Henrry Patel MD. ts3 14:27 Salicylate Sent. em1 14:27 Hepatic Function Sent. em1 14:27 ETOH Level Sent. em1 14:27 CBC with Diff Sent. em1 14:27 Basic Metabolic Panel Sent. em1 14:27 Acetaminophen Sent. em1 14:27 Initial lab(s) drawn, by wa, sent to lab. Inserted saline lock: 22 gauge in right hand, em1 using aseptic technique. Blood collected. Flushed with 10 mL NS. 14:33 No apparent distress. Resting quietly. Awaiting lab results, Awaiting ED provider 7 evaluation. 14:33 Patient has correct armband on for positive identification. Bed in low position. Call 7 light in reach. Security at bedside. Pulse ox on. NIBP on. Warm blanket given. Assisted to bathroom. Assisted with urinal. 14:33 Urine collected: clean catch specimen, clear. Missed attempt(s): 20 gauge in left bm7 antecubital area. Bleeding controlled, band aid applied, catheter tip intact. Patient maintains SpO2 saturation greater than 95% on room air. 15:22 Called [facility] talked to Becca. sp 15:34 [place] Screener will be here in 4-6 hours Nilda. sp 15:45 IV discontinued, bleeding controlled, No redness/swelling at site. Pressure dressing rg5 applied. 15:58 CALLED [facility] TO [facility]CEL SCREENER FOR [place] TALKED TO AIDA. king Administered Medications: 14:30 Drug: NS 0.9% IV 1000 ml IV at 1 bolus Per protocol; to be given as a bolus over 60 rg5 minutes Route: IV; Rate: 1 bolus; Site: right hand; 15:30 Follow up: IV Status: Completed infusion; IV Intake: 1000ml rg5 14:43 Drug: Pantoprazole PO 40 mg PO once Route: PO; rg5 15:39 Follow up: Response: No adverse reaction rg5 Medication: 15:30 VIS not applicable for this client. rg5 Intake: 15:30 IV: 1000ml; Total: 1000ml. rg5 Outcome: 15:38 Discharge ordered by MD. sb4 15:45 Discharged to home ambulatory, rg5 15:45 Condition: stable 15:45 Discharge instructions given to patient, Instructed on discharge instructions, follow up and referral plans. Demonstrated understanding of 15:56 Patient left the ED. ts3 Signatures: Odalys Tellez Eric em1 Yoav Conrad, RN RN jl7 Justa Flannery, RN RN bm7 Velvet Sheth, PA-C PA-C sb4 Brian Gramajo, MARIE RN rg5 Amanda Zelaya ts3 Corrections: (The following items were deleted from the chart) 15:27 14:27 PTT, ACTIVATED+COAG.LAB.BRZ drawn and sent. em1 EDMS 15:27 14:27 PROTIME (+INR)+COAG.LAB.BRZ drawn and sent. em1 EDMS
[2024-11-03 16:01] VITALS: BP 140/100; TEMP 97.9; O2SAT 100
== END 2024-11-03 15:56 | disposition home or self-care (01) ==
LOC: ER 13:35
DX: F31.9 Bipolar disorder, unspecified (principal); I10 Essential (primary) hypertension; F43.10 Post-traumatic stress disorder, unspecified; F15.90 Other stimulant use, unspecified, uncomplicated; F17.290 Nicotine dependence, other tobacco product, uncomplicated; Z88.0 Allergy status to penicillin
CPT/HCPCS: 36415; 80048; 80076; 80143; 80179; 80307; 82077; 85025; 93005; 96360; 99285; J7030